=== PATIENT | female | born 1940 | race Caucasian/White ===

== ENCOUNTER 2023-02-09 14:42 | Outpatient (OUT) | payer MEDICARE, SELFPAY ==
--- NOTE | 2023-02-09 | MM_ITS ---
Patient: LYNDON RUTHERFORD Exam Date: 02/09/2023 : 1940 Gender:F Ordering : Non-Staff Physician Admission #: [id number] Family : PK CAMPA Order #: [id number] CLICK HERE TO VIEW EXAM RADIOLOGY REPORT PROCEDURE: MM TOMOSYNTHESIS SCREENING BI COMPARISON: MG MAMM SCREEN 3D FRANCISCO J CAD, 01/28/2021. MG MAMM SCREEN FRANCISCO J W CAD, 02/22/2019. MG MAMM SCREEN FRANCISCO J W CAD, 06/14/2016. MG MAMM FRANCISCO J SCRN W CAD DIG, 05/07/2014. INDICATIONS: Z12.31 Calculator Name NCI Breast Cancer Risk Assessment Tool 5 Year Breast Cancer Risk 1.50% Lifetime Breast Cancer Risk 2.10% Personal Breast Cancer No Personal Ovarian Cancer No Treatments None Family Cancers None LOCATION: [facility] BREAST COMPOSITION: Almost entirely fatty. FINDINGS: DIAGNOSTIC CATEGORY 2--BENIGN FINDING: RIGHT BREAST: No significant suspicious finding. Scattered benign-appearing calcifications are present. Scattered benign-appearing lymph nodes are present. No significant change has occurred. LEFT BREAST: No significant suspicious finding. Scattered benign-appearing calcifications are present. No significant change has occurred. RECOMMENDATIONS: ROUTINE MAMMOGRAM AND CLINICAL EVALUATION IN 12 MONTHS. PLEASE NOTE: A NORMAL MAMMOGRAM DOES NOT EXCLUDE THE POSSIBILITY OF BREAST CANCER. A CLINICALLY SUSPICIOUS PALPABLE LUMP SHOULD BE BIOPSIED. Dictated by: Christiano Hidalgo M.D. on 02/10/2023 at 11:59 Approved by: Christiano Hidalgo M.D. on 02/10/2023 at 12:01
== END 2023-02-09 14:43 | disposition home or self-care (01) ==
LOC: MAMMO 14:42
PROVIDERS: PCP Internal Medicine
DX: Z12.31 Encounter for screening mammogram for malignant neoplasm of breast (principal)
CPT/HCPCS: 77063; 77067

== ENCOUNTER 2023-09-26 06:40 | Outpatient (OUT) | payer MEDICARE, SELFPAY ==
--- NOTE | 2023-09-26 06:54 | CT_ITS ---
[address] [address] Patient Name: LYNDON RUTHERFORD MRN: [id number] date: 1940 Sex: F Assigned Patient Location: LAB Current Patient Location: LAB Accession/Order Number: [id number] Exam Date: 09/26/2023 07:50 Report Date: 09/26/2023 08:46 At the request of: LISA BLACK Procedure: CT abdomen pelvis w con EXAMINATION: CT abdomen pelvis w con HISTORY: Left Upper Quadrant PAin R10.32, Calculus Of Gallbladder , right upper quadrant pain COMPARISON: No relevant comparison available. TECHNIQUE: Axial, Coronal, and Sagittal images were obtained without and/or with IV contrast as indicated by examination type. Dose reduction techniques were achieved by using automated exposure control and/or adjustment of mA and/or kV according to patient size and/or use of iterative reconstruction technique. FINDINGS: LUNG BASES: No visible pulmonary or pleural disease. LIVER: Heterogeneous poorly marginated hypodense mass within inferior medial aspect of the anterior right hepatic lobe, 7.4 x 6.8 x 6.4 cm. There appears to be extension of the lesion through the inferior medial liver capsule causing mass effect on the duodenum, and through the inferior liver capsule nearly contacting the hepatic flexure of the colon. Abnormally dilated intrahepatic bile ducts, left lobe greater than right with suspected compression of the proximal common bile duct by the mass. Prior cholecystectomy. BILIARY: No dilatation or calcification. PANCREAS: No lesion, fluid collection, or abnormal duct dilatation. SPLEEN: No enlargement or focal lesion. ADRENALS: No mass or enlargement. KIDNEYS: No mass, obstruction, or calcification. BOWEL/MESENTERY: Marked diverticulosis of descending and sigmoid colon without acute inflammatory changes. No visible mass, obstruction, or bowel wall thickening. Normal appendix. AORTA/VASCULAR: No aneurysm or dissection. RETROPERITONEUM: No mass or adenopathy. LYMPH NODES: No adenopathy. URINARY BLADDER: No visible focal wall thickening, lesion, or calculus. PELVIC ORGANS: No visible mass. Pelvic organs appropriate for patient age. ABDOMINAL WALL: No mass or hernia. BONES: No bony lesion or fracture. OTHER: Negative. CT/CT abdomen pelvis w con IMPRESSION: 1. 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 There is also mass effect on the common bile duct resulting in abnormal intrahepatic bile duct dilation. 2.No appreciable lymphadenopathy or metastatic disease. 3. Marked colonic diverticulosis. Electronically authenticated by: DAILY GIRARD Date: 09/26/2023 08:46
[2023-09-26 07:05] LABS: Estimated GFR (African America >60 (>=60); Estimated GFR (Non-African Ame >60 (>=60)
== END 2023-09-26 06:41 | disposition home or self-care (01) ==
LOC: LAB 06:40
PROVIDERS: PCP Internal Medicine; Visit Provider Surgery
DX: R10.12 Left upper quadrant pain (principal); R10.32 Left lower quadrant pain; K80.20 Calculus of gallbladder without cholecystitis without obstruction; R16.0 Hepatomegaly, not elsewhere classified; K57.90 Diverticulosis of intestine, part unspecified, without perforation or abscess without bleeding
CPT/HCPCS: 36415; 74177; 82565; Q9967